=== PATIENT | male | born 1980 | race Caucasian/White ===

== ENCOUNTER 2020-04-20 22:10 | Emergency (ER) | payer OTHER ==
[2020-04-20] MEDS ORDERED: oxyCODONE 5 MG Tab PO ONE (22:27)
[2020-04-20] MEDS ORDERED: Take Home: Acetaminophen/oxyCODONE 325-5 MG, 5 Tab Pack PO ONE (23:14)
--- NOTE | 2020-04-20 23:29 | EDM.PDOC ---
ED HPI GENERAL MEDICAL PROBLEM - General Chief Complaint: Back Pain or Injury Stated Complaint: BACK INJURY Time Seen by Provider: 04/20/20 22:25 Source of Information: Reports: Patient History Limitations: Reports: No Limitations - History of Present Illness INITIAL COMMENTS - FREE TEXT/NARRATIVE: Pt. states that he was riding on a swing with his daughter and fell off, landing on the L side of his back. He states that this happened 1 hours before coming to ER. Denies any significant shortness of breath, but complains of increased pain with deep breathing. Did not strike head. Denies any midline neck or back pain. Denies any abdominal discomfort. He states that he is able to ambulate. Denies any extremity trauma. Onset: Today Location: Reports: Back Quality: Reports: Ache, Throbbing Severity: Severe Left Middle Back Pain Score (Numeric/FACES): 4 - Related Data Allergies Allergy/AdvReac Type Severity Reaction Status Date / Time hydromorphone [From Dilaudid] Allergy Itching Verified 04/20/20 22:27 Home Meds: Home Meds ClonazePAM [KlonoPIN] 1 tab PO BEDTIME 04/20/20 [History] Venlafaxine [Effexor XR 24 Hr] 37.5 mg PO DAILY 04/20/20 [History] Venlafaxine [Effexor XR] 150 mg PO DAILY 04/20/20 [History] hydrOXYzine HCL [Atarax] 25 mg PO Q6H PRN 04/20/20 [History] ED ROS GENERAL - Review of Systems Review Of Systems: See Below Constitutional: Reports: No Symptoms HEENT: Reports: No Symptoms Respiratory: Reports: Other (posterior chest pain) Cardiovascular: Reports: No Symptoms Endocrine: Reports: No Symptoms GI/Abdominal: Reports: No Symptoms : Reports: No Symptoms Musculoskeletal: Reports: Back Pain Skin: Reports: No Symptoms Neurological: Reports: No Symptoms Psychiatric: Reports: No Symptoms Hematologic/Lymphatic: Reports: No Symptoms Immunologic: Reports: No Symptoms ED EXAM, GENERAL - Physical Exam Exam: See Below Exam Limited By: No Limitations General Appearance: Alert, WD/WN, No Apparent Distress Head: Atraumatic, Normocephalic Neck: Normal Inspection, Supple, Non-Tender, Full Range of Motion. No: Tender Lateral, Tender Midline Respiratory/Chest: No Respiratory Distress, Lungs Clear, Normal Breath Sounds Cardiovascular: Normal Peripheral Pulses, Regular Rate, Rhythm, No Edema, No JVD , No Rub Peripheral Pulses: 4+: Radial (L) GI/Abdominal: Soft, Non-Tender, No Mass (Male) Exam: Deferred Rectal (Males) Exam: Deferred Back Exam: Other (pain to L lower posterior ribs. No obvious crepitus. No obvious deformity. No ecchymosis or erythema. ) Extremities: Normal Inspection, Normal Range of Motion, Non-Tender, No Pedal Edema, Normal Capillary Refill Neurological: Alert, Oriented, CN II-XII Intact, Normal Cognition, No Motor/ Sensory Deficits Psychiatric: Normal Affect Skin Exam: Warm, Dry, Intact Course - Vital Signs Last Recorded V/S: Last Vital Signs Temp 36.2 C 04/20/20 22:21 Pulse 71 04/20/20 22:21 Resp 18 04/20/20 22:21 BP 122/86 04/20/20 22:21 Pulse Ox 96 04/20/20 22:21 - Orders/Labs/Meds Orders: Active Orders 24 hr Category Date Time Status Chest 2V [CR] Stat Exams 04/20/20 22:36 Taken Meds: Medications Discontinued Medications Generic Name Dose Route Start Last Admin Trade Name Quintin PRN Reason Stop Dose Admin Oxycodone HCl 5 mg 04/20/20 22:27 04/20/20 22:50 Oxycodone PO 04/20/20 22:28 5 mg ONETIME ONE Administration Oxycodone/Acetaminophen 1 packet 04/20/20 23:14 04/20/20 23:21 Take Home: Acetamin/Oxycodon 325-5 Mg, 5 Pack PO 04/20/20 23:15 1 packet ONETIME ONE Administration Departure - Departure Time of Disposition: 22:21 Disposition: Home, Self-Care 01 Clinical Impression: Chest wall contusion - Discharge Information Instructions: Oxycodone tablets or capsules, Rib Contusion Referrals: PCP,None [Primary Care Provider] - Forms: ED Department Discharge Additional Instructions: Home to rest. For now, I would stop the Voltaren and start ibuprofen 200mg (3 tabs every 6 hours) Alternate ice and heat For severe pain, oxycodone/acetaminophen 5/325mg every 4-6 hours as needed for pain Recheck in clinic in 1 week if not improving. Return to ER if you have increased shortness of breath, lightheadedness, or other worrisome signs/symptoms. Sepsis Event Note (ED) - Evaluation Sepsis Screening Result: No Definite Risk - Focused Exam Vital Signs: Vital Signs Temp Pulse Resp BP Pulse Ox 04/20/20 22:21 36.2 C 71 18 122/86 96 - My Orders Last 24 Hours: My Active Orders 04/20/20 22:36 Chest 2V [CR] Stat - Assessment/Plan Last 24 Hours: My Active Orders 04/20/20 22:36 Chest 2V [CR] Stat Plan: Home to rest. For now, I would stop the Voltaren and start ibuprofen 200mg (3 tabs every 6 hours) Alternate ice and heat For severe pain, oxycodone/acetaminophen 5/325mg every 4-6 hours as needed for pain Recheck in clinic in 1 week if not improving. Return to ER if you have increased shortness of breath, lightheadedness, or other worrisome signs/symptoms.
--- NOTE | 2020-04-21 10:07 | CR ---
[id number] RAD/RAD Chest PA And Lateral EXAM: FRONTAL AND LATERAL CHEST INDICATION: FELL 6 FEET, POSTERIOR RIB PAIN COMPARISON: None. DISCUSSION: Mild hypoinflation with minor associated basilar atelectasis. No acute infiltrates are identified. No pleural effusions or pneumothoraces are identified. The osseous structures are grossly intact. Normal heart size. Left subclavian approach pacemaker leads RA and RV. IMPRESSION: 1. No acute findings. Alfredo Corado MD 04/21/20 1007 Thank you for allowing us to participate in the care of your patient.
== END 2020-04-20 23:27 | disposition home or self-care (01) ==
LOC: VM.ED 22:10
DX: S20.212A Contusion of left front wall of thorax, initial encounter (principal); Z88.5 Allergy status to narcotic agent; Z79.899 Other long term (current) drug therapy; W09.1XXA Fall from playground swing, initial encounter
CPT/HCPCS: 71046; 99283; A9270